=== PATIENT | male | born 1985 | race American Indian/Alaskan Native ===

== ENCOUNTER 2021-06-06 08:29 | Inpatient (IN) ==
[2021-06-06] MEDS ORDERED: Aspirin 81 MG TAB.CHEW PO ONE (09:39)
[2021-06-06 10:40] LABS: Basophils # 0.1 K/mcL (0.0-0.2); Basophils % 0.7 %; Eosinophils # 0.1 K/mcL (0.0-0.6); Hematocrit 51.3 % (37.5-50.1); Hemoglobin 17.9 g/dL (12.9-16.9); Immature Granulocytes % 0.6 % (0-4); Lymphocytes # 1.8 K/mcL (0.6-4.6); Lymphocytes % 14.6 %; Mean Corpuscular HGB Conc 34.9 g/dL (31.6-35.5); Mean Corpuscular Volume 88.8 fL (83.0-100.0); Mean Platelet Volume 9.6 fL (9.4-12.4); Monocytes % 7.8 %; Neutrophils # 9.4 K/mcL (1.6-8.9); Nucleated Red Blood Cells 0.2 /100 WBC (0); Platelet Count 487 K/mcL (140-400); Red Blood Count 5.78 M/mcL (4.19-5.50); Red Cell Distribution Width 13.2 % (11.5-14.5); Segmented Neutrophils % 75.3 %
[2021-06-06 10:41] LABS: Influenza A PCR Negative (Negative); Influenza B PCR Negative (Negative); Resp. Syncytial Virus PCR Negative (Negative)
[2021-06-06 10:44] LABS: White Blood Count 12.5 K/mcL (4.3-11.1)
[2021-06-06 10:44] LABS: VBG HCO3 28 mEq/L (21-27); VBG PCO2 49 mmHg (41-51); VBG PH 7.37 pH Units (7.32-7.42); VBG PO2 42 mmHg (25-50)
[2021-06-06] MEDS ORDERED: 0.9 % Sodium Chloride 500 ML IV ONE (11:15)
[2021-06-06] MEDS ORDERED: Isovue-370 500 ML BOTTLE IVP ONE (11:29)
[2021-06-06 11:38] LABS: SARS-CoV-2 by PCR (In House) Negative (Negative)
[2021-06-06] MEDS ORDERED: *HR* Heparin 5,000 UNIT/ML VIAL IVP ONE (13:09)
[2021-06-06] MEDS ORDERED: *HR* Heparin 5,000 UNIT/ML VIAL IVP PRN ×2 (13:09)
[2021-06-06] MEDS: Heparin 25,000UNIT/250ML 1/2NS 25,000 UNIT/250 ML IV.SOLN IVC SCH (13:53)
[2021-06-06 14:04] LABS: INR 1.1; Prothrombin Time 12.5 Seconds (9.4-12.1)
[2021-06-06 14:05] LABS: Hemoglobin 16.5 g/dL (12.9-16.9); Mean Corpuscular HGB Conc 34.4 g/dL (31.6-35.5); Mean Corpuscular Hemoglobin 30.7 pg (28.0-33.3); Mean Corpuscular Volume 89.2 fL (83.0-100.0); Mean Platelet Volume 9.4 fL (9.4-12.4); Platelet Count 443 K/mcL (140-400); Red Blood Count 5.38 M/mcL (4.19-5.50); Red Cell Distribution Width 13.3 % (11.5-14.5); White Blood Count 10.1 K/mcL (4.3-11.1)
[2021-06-06 14:06] LABS: Heparin anti-factor XA UFH < 0.04 IU/mL (0.30-0.70)
[2021-06-06] MEDS ORDERED: Perflutren Lipid Microsphere 1.3 ML in 0.9 % Sodium Chloride 8.7 ML IVP PRN (14:08)
[2021-06-06 14:12] LABS: Alanine Aminotransferase 28 Units/L (7-52); Albumin 3.9 g/dL (3.5-5.7); Albumin/Globulin Ratio 1.1 (1.1-2.2); Alkaline Phosphatase 97 Units/L (34-104); Aspartate Amino Transferase 19 Units/L (13-39); BUN/Creatinine Ratio 14 (6-26); Bilirubin,Direct 0.6 mg/dL (0.0-0.2); Bilirubin,Total 2.6 mg/dL (0.3-1.0); Blood Urea Nitrogen 11 mg/dL (6-20); Calcium 9.3 mg/dL (8.6-10.3); Carbon Dioxide 24 mEq/L (23-29); Chloride 104 mEq/L (98-107); Globulin 3.4 g/dL (2.4-3.5); Glucose 101 mg/dL (70-105); Osmolality,Calculated 286 (280-300); Potassium 4.1 mEq/L (3.5-5.1); Sodium 138 mEq/L (136-145); Total Protein 7.3 g/dL (6.4-8.9); eGFR For African Americans > 60 (> 60); eGFR For Non-African Americans > 60 (> 60)
[2021-06-06] MEDS ORDERED: Ondansetron ODT 4 MG TAB.RAPDIS SL PRN (14:31)
[2021-06-06] MEDS ORDERED: Naloxone 0.4 MG/ML INJ IVP PRN (14:31)
[2021-06-06] MEDS ORDERED: Melatonin 3 MG TABLET PO PRN (14:31)
[2021-06-06] MEDS ORDERED: *HR* LORazepam 2 MG/ML VIAL IVP ONE (21:49)
[2021-06-06] MEDS: cloNIDine HCL 0.1 MG TABLET PO SCH (21:57)
[2021-06-07] MEDS: cloNIDine HCL 0.1 MG TABLET PO SCH ×2 (09:21→21:24)
[2021-06-07] MEDS: ARIPiprazole 10 MG TABLET PO SCH (09:21)
[2021-06-07] MEDS: Heparin 25,000UNIT/250ML 1/2NS 25,000 UNIT/250 ML IV.SOLN IVC SCH (09:22)
[2021-06-07 09:24] LABS: Hematocrit 49.6 % (37.5-50.1); Hemoglobin 16.8 g/dL (12.9-16.9); Mean Corpuscular HGB Conc 33.9 g/dL (31.6-35.5); Mean Corpuscular Hemoglobin 30.2 pg (28.0-33.3); Mean Corpuscular Volume 89.2 fL (83.0-100.0); Mean Platelet Volume 9.8 fL (9.4-12.4); Platelet Count 404 K/mcL (140-400); Red Blood Count 5.56 M/mcL (4.19-5.50); Red Cell Distribution Width 13.2 % (11.5-14.5); White Blood Count 9.7 K/mcL (4.3-11.1)
[2021-06-07 09:42] LABS: Albumin 3.8 g/dL (3.5-5.7); Albumin/Globulin Ratio 1.2 (1.1-2.2); Bilirubin,Direct 0.6 mg/dL (0.0-0.2); Bilirubin,Indirect 2.1 mg/dL (0.0-1.0); Bilirubin,Total 2.7 mg/dL (0.3-1.0); Globulin 3.1 g/dL (2.4-3.5); Total Protein 6.9 g/dL (6.4-8.9)
[2021-06-07 09:44] LABS: BUN/Creatinine Ratio 16 (6-26); Blood Urea Nitrogen 11 mg/dL (6-20); Calcium 9.3 mg/dL (8.6-10.3); Carbon Dioxide 23 mEq/L (23-29); Chloride 103 mEq/L (98-107); Glucose 111 mg/dL (70-105); Osmolality,Calculated 278 (280-300); Sodium 134 mEq/L (136-145); Troponin I 0.03 ng/mL (< 0.04); eGFR For African Americans > 60 (> 60); eGFR For Non-African Americans > 60 (> 60)
[2021-06-07] MEDS: *HR* LORazepam 1 MG TABLET PO PRN ×2 (09:47→17:49)
[2021-06-07] MEDS ORDERED: Ipratropium/Albuterol Neb 3 ML IH PRN (10:48)
[2021-06-07] MEDS ORDERED: Isovue-370 500 ML BOTTLE IVP ONE (16:38)
[2021-06-07] MEDS ORDERED: *HR* LORazepam 2 MG/ML VIAL IVP ONE (19:46)
[2021-06-07] MEDS ORDERED: Isovue-370 500 ML BOTTLE PO ONE (20:43)
[2021-06-08] MEDS ORDERED: *HR* HYDROmorphone 2 MG TABLET PO ONE (00:09)
[2021-06-08 00:54] LABS: Amphetamine Screen,Urine Negative ng/mL (Cutoff=1000); Barbiturate Screen,Urine Negative ng/mL (Cutoff=200); Benzodiazepines Screen,Urine Negative ng/mL (Cutoff=200); Cannabinoid Screen,Urine Positive ng/mL (Cutoff = 50); Cocaine Screen,Urine Negative ng/mL (Cutoff= 300); Opiate Screen,Urine Negative ng/mL (Cutoff=300); Phencyclidine Screen,Urine Negative ng/mL (Cutoff=25)
[2021-06-08] MEDS: *HR* LORazepam 1 MG TABLET PO PRN ×3 (03:06→19:34)
[2021-06-08] MEDS: Heparin 25,000UNIT/250ML 1/2NS 25,000 UNIT/250 ML IV.SOLN IVC SCH ×3 (03:37→22:08)
[2021-06-08] MEDS: cloNIDine HCL 0.1 MG TABLET PO SCH ×2 (09:35→19:34)
[2021-06-08] MEDS: ARIPiprazole 10 MG TABLET PO SCH (09:35)
[2021-06-08] MEDS ORDERED: Acetaminophen 325 MG TABLET PO PRN (10:33)
[2021-06-08] MEDS: *HR* HYDROcodone/Acet 5/325 mg TABLET PO PRN ×2 (12:18→18:29)
[2021-06-08 17:02] LABS: Basophils # 0.1 K/mcL (0.0-0.2); Basophils % 0.6 %; Eosinophils # 0.5 K/mcL (0.0-0.6); Eosinophils % 4.3 %; Hematocrit 44.8 % (37.5-50.1); Hemoglobin 15.7 g/dL (12.9-16.9); Immature Granulocytes % 0.7 % (0-4); Immature Reticulocyte % 10.5 % (11.0-38.0); Lymphocytes # 2.4 K/mcL (0.6-4.6); Lymphocytes % 20.5 %; Mean Corpuscular Hemoglobin 31.4 pg (28.0-33.3); Mean Corpuscular Volume 89.6 fL (83.0-100.0); Monocytes # 1.4 K/mcL (0.0-1.3); Neutrophils # 7.3 K/mcL (1.6-8.9); Platelet Count 455 K/mcL (140-400); Red Cell Distribution Width 13.2 % (11.5-14.5); Retculocyte # 0.08 M/mcL (0.05-0.10); Reticulocyte % 1.7 % (1.6-2.8); Segmented Neutrophils % 61.9 %; White Blood Count 11.7 K/mcL (4.3-11.1)
[2021-06-08 17:18] LABS: BUN/Creatinine Ratio 16 (6-26); Blood Urea Nitrogen 11 mg/dL (6-20); Calcium 9.3 mg/dL (8.6-10.3); Carbon Dioxide 24 mEq/L (23-29); Chloride 99 mEq/L (98-107); Glucose 133 mg/dL (70-105); Lactate Dehydrogenase 194 Units/L (140-271); Osmolality,Calculated 277 (280-300); Potassium 3.8 mEq/L (3.5-5.1); Sodium 133 mEq/L (136-145); eGFR For African Americans > 60 (> 60); eGFR For Non-African Americans > 60 (> 60)
[2021-06-08 17:44] LABS: Folate 8.7 ng/mL (3.0-16.0)
[2021-06-09 07:18] LABS: Basophils # 0.1 K/mcL (0.0-0.2); Eosinophils # 0.6 K/mcL (0.0-0.6); Eosinophils % 6.2 %; Hematocrit 43.3 % (37.5-50.1); Hemoglobin 14.4 g/dL (12.9-16.9); Immature Granulocytes % 0.8 % (0-4); Lymphocytes # 2.1 K/mcL (0.6-4.6); Lymphocytes % 23.9 %; Mean Corpuscular HGB Conc 33.3 g/dL (31.6-35.5); Mean Corpuscular Hemoglobin 30.4 pg (28.0-33.3); Mean Corpuscular Volume 91.4 fL (83.0-100.0); Mean Platelet Volume 10.1 fL (9.4-12.4); Monocytes # 1.1 K/mcL (0.0-1.3); Monocytes % 12.4 %; Neutrophils # 4.9 K/mcL (1.6-8.9); Platelet Count 376 K/mcL (140-400); Red Blood Count 4.74 M/mcL (4.19-5.50); Red Cell Distribution Width 13.1 % (11.5-14.5); Segmented Neutrophils % 55.7 %; White Blood Count 8.9 K/mcL (4.3-11.1)
[2021-06-09] MEDS: *HR* HYDROcodone/Acet 5/325 mg TABLET PO PRN ×3 (07:27→20:10)
[2021-06-09] MEDS: cloNIDine HCL 0.1 MG TABLET PO SCH ×2 (07:28→20:10)
[2021-06-09] MEDS: ARIPiprazole 10 MG TABLET PO SCH (07:28)
[2021-06-09 07:36] LABS: BUN/Creatinine Ratio 13 (6-26); Blood Urea Nitrogen 9 mg/dL (6-20); Carbon Dioxide 26 mEq/L (23-29); Chloride 99 mEq/L (98-107); Glucose 97 mg/dL (70-105); Osmolality,Calculated 273 (280-300); Potassium 4.1 mEq/L (3.5-5.1); Sodium 132 mEq/L (136-145); eGFR For African Americans > 60 (> 60); eGFR For Non-African Americans > 60 (> 60)
[2021-06-09] MEDS: *HR* LORazepam 1 MG TABLET PO PRN ×2 (10:28→18:32)
[2021-06-09 10:35] LABS: Alanine Aminotransferase 23 Units/L (7-52); Albumin 3.5 g/dL (3.5-5.7); Albumin/Globulin Ratio 1.2 (1.1-2.2); Alkaline Phosphatase 81 Units/L (34-104); Aspartate Amino Transferase 15 Units/L (13-39); Bilirubin,Direct 0.4 mg/dL (0.0-0.2); Bilirubin,Indirect 1.4 mg/dL (0.0-1.0); Bilirubin,Total 1.8 mg/dL (0.3-1.0); Globulin 2.9 g/dL (2.4-3.5); Total Protein 6.4 g/dL (6.4-8.9)
[2021-06-09] MEDS: Heparin 25,000UNIT/250ML 1/2NS 25,000 UNIT/250 ML IV.SOLN IVC SCH (15:00)
[2021-06-09] MEDS: *HR* Enoxaparin 100 MG/ML SYRINGE SQ SCH (18:00)
[2021-06-10 03:47] VITALS: O2SAT 98
[2021-06-10] MEDS: *HR* Enoxaparin 100 MG/ML SYRINGE SQ SCH ×2 (05:04→17:51)
[2021-06-10] MEDS: *HR* HYDROcodone/Acet 5/325 mg TABLET PO PRN ×2 (05:04→15:48)
[2021-06-10] MEDS: cloNIDine HCL 0.1 MG TABLET PO SCH (07:42)
[2021-06-10] MEDS: *HR* LORazepam 1 MG TABLET PO PRN ×2 (07:42→15:49)
[2021-06-10] MEDS: ARIPiprazole 10 MG TABLET PO SCH (07:42)
[2021-06-10 11:02] VITALS: BP 104/71; PULSE 81; TEMP 97.7
== END 2021-06-10 19:50 | disposition home or self-care (01) | DRG 134 ==
LOC: EMEROOARM 08:29 → 3BNU 08:29 → SUATTDRO 06-07 14:50
PROVIDERS: ADMIT Student in an Organized Health Care Education/Training Program; ATTEND Internal Medicine